=== PATIENT | male | born 1990 | race Caucasian/White ===

== ENCOUNTER → 2025-10-03 | Outpatient (CLI) | payer OTHER ==
[~2025-10-03] MED LIST: CYCL5TAB4; DESV100T3; FAMO-142 PO; HYDR-3490
== END ==
LOC: M RAD 08:08
PROVIDERS: ATTEND Student in an Organized Health Care Education/Training Program
DX: R16.1 Splenomegaly, not elsewhere classified (principal)

== ENCOUNTER → 2025-10-09 | Outpatient (CLI) | payer OTHER ==
[~2025-10-09] MED LIST changes: +CIPR-249 PO; +CYCL5TAB4 PO; +HYDR-3490 PO; +HYDR-3713 PO; +LIDO5TD TOP; +METR-265 PO; +PRIS100T PO
== END ==
LOC: M PLARAD 14:42
PROVIDERS: ATTEND Student in an Organized Health Care Education/Training Program
DX: C85.90 Non-Hodgkin lymphoma, unspecified, unspecified site (principal)
CPT/HCPCS: 78815; A9552